=== PATIENT | male | born 1935 | race Caucasian/White ===

== ENCOUNTER 2021-07-17 02:13 | Emergency (ER) | payer OTHER, MEDICAID ==
[~2021-07-17] VITALS: Ht 165.1 cm; Wt 59.0 kg
[~2021-07-17 02:13] MED LIST: AMLO2.5T45 PO; CIPR500T5 PO; CRES10 PO; ESOM40CA PO; FURO40TA5 PO; GABA-529 PO; INSU3INS6 SQ; LEVO75TA7 PO; RANI150T7 PO; SITA100T11 PO; SITA50TA3 PO; TAMS0.4C31 PO; TEMA30CA PO; TRAM50TA3 PO; [UNRECOGNIZED DRUG - OTHER] SUBCUT
[2021-07-17 02:39] LABS: BASOPHILS % 0.6 % (0.0-2.0); EOSINOPHILS % 7.9 % (0.0-5.0); HEMOGLOBIN. 9.3 g/dL (14.0-18.0); LYMPHOCYTES % 41.4 % (20.0-50.0); MEAN CORPUSCULAR HEMOGLOBIN 31.6 pg (28.0-32.0); MEAN PLATELET VOLUME 7.7 fl (7.4-10.4); MONOCYTES % 10.9 % (2.0-8.0); NEUTROPHILS % 39.2 % (40.0-76.0); PLATELET 220 x1000/uL (130-400); RED BLOOD CELL COUNT 2.94 mill/uL (4.7-6.1)
[2021-07-17 02:51] LABS: CHLORIDE 114 mEq/L (98-107)
[2021-07-17] MEDS ORDERED: DEXTROSE 50% WATER 50ML SYRINGE IV ONE (03:15)
[2021-07-17] MEDS ORDERED: DEXT 10% WATER 1,000 ML IV ONE (03:30)
[2021-07-17] MEDS ORDERED: OLANZAPINE 10 MG/VIAL IM ONE (10:15)
[2021-07-17] MEDS ORDERED: LORAZEPAM 2MG/ML CPJ IM ONE (10:15)
[2021-07-17 10:42] VITALS: BP 138/47
== END 2021-07-17 10:36 | disposition short-term general hospital (02) ==
LOC: ER 02:13
DX: E11.649 Type 2 diabetes mellitus with hypoglycemia without coma (principal); I10 Essential (primary) hypertension; Z20.822 Contact with and (suspected) exposure to COVID-19; Z88.8 Allergy status to other drugs, medicaments and biological substances; Z79.899 Other long term (current) drug therapy
CPT/HCPCS: 36415; 80053; 82962; 83880; 84484; 85025; 87426; 93005; 96361; 96372; 96374; 99291; J2060; J3490

== ENCOUNTER 2023-03-31 14:09 | Emergency (ER) | payer OTHER ==
[~2023-03-31] VITALS: Ht 167.6 cm; Wt 68.0 kg
[2023-03-31 14:23] VITALS: O2SAT 98
[2023-03-31 15:31] LABS: BASOPHILS % 0.7 % (0.0-2.0); EOSINOPHILS % 2.7 % (0.0-5.0); HEMATOCRIT. 37.5 % (42.0-52.0); HEMOGLOBIN. 12.6 g/dL (14.0-18.0); LYMPHOCYTES % 10.8 % (20.0-50.0); MEAN CORPUSCULAR HEMOGLOBIN 31.7 pg (28.0-32.0); MEAN CORPUSCULAR HGB CONC 33.7 g/dL (31.0-37.0); MEAN CORPUSCULAR VOLUME 94.2 fL (80.0-94.0); MEAN PLATELET VOLUME 8.4 fl (7.4-10.4); MONOCYTES % 5.8 % (2.0-8.0); PLATELET 277 x1000/uL (130-400); RED BLOOD CELL COUNT 3.98 mill/uL (4.7-6.1); RED CELL DISTRIBUTION WIDTH 14.2 % (11.6-14.6); WHITE BLOOD COUNT 8.9 x1000/uL (4.5-11.0)
[2023-03-31 15:37] LABS: PROTHROMBIN TIME 11.3 sec (9.6-11.0)
[2023-03-31 15:42] LABS: ALANINE AMINOTRANSFERASE 8 IU/L (10-49); ALBUMIN 4.4 g/dL (3.2-4.8); ASPARTATE AMINOTRANSFERASE 20 IU/L (<34); BILIRUBIN TOTAL 0.6 mg/dL (0.1-1.0); CALCIUM 9.2 mg/dL (8.7-10.4); CARBON DIOXIDE 26 mEq/L (21-32); CHLORIDE 96 mEq/L (98-107); CREATININE 3.8 mg/dL (0.6-1.3); POTASSIUM 3.8 mEq/L (3.5-5.1); PROTEIN TOTAL 9.3 g/dL (6.0-8.3); SODIUM 134 mEq/L (136-145); TROPONIN I HIGH SENSITIVITY 35 ng/L (3.0-53)
[2023-03-31 15:44] LABS: GLUCOSE 269 mg/dL (70-105)
[2023-03-31 15:45] LABS: ETHANOL BLOOD < 10 mg/dL (<10)
[2023-03-31 15:48] LABS: UREA NITROGEN BLOOD 115 mg/dL (9-23)
[2023-03-31] MEDS ORDERED: CEFTRIAXONE 1GM PREMIX 50 ML IV ONE (16:00)
[2023-03-31 17:29] LABS: TROPONIN I HIGH SENSITIVITY 44 ng/L (3.0-53)
[2023-03-31] MEDS: AZITHROMYCIN 500MG/250ML 250 ML IV SCH (19:23)
[2023-03-31] MEDS: SODIUM CHLORIDE 0.9% 1,000 ML IV ONE (19:23)
[2023-03-31 20:12] LABS: CLARITY URINE CLEAR (CLEAR); COLOR URINE YELLOW (YELLOW); GLUCOSE URINE 1+ (NEGATIVE); KETONES URINE NEGATIVE (NEGATIVE); LEUKOCYTE ESTERASE URINE NEGATIVE (NEGATIVE); NITRITE URINE NEGATIVE (NEGATIVE); OCCULT BLOOD URINE TRACE (NEGATIVE); PH URINE 5.5 (4.5-8.0); PROTEIN URINE 2+ (NEGATIVE); SPECIFIC GRAVITY URINE 1.012 (1.005-1.030); UROBILINOGEN URINE 0.2 E.U./dL (0.2-1.0)
[2023-03-31 20:42] LABS: RBC URINE NONE SEEN /hpf (0-2); WBC URINE NONE SEEN /hpf (0-2)
[2023-03-31 20:43] LABS: BACTERIA URINE NONE SEEN; SQUAMOUS EPITHELIAL CELL URINE RARE /lpf (RARE/1+)
[2023-03-31] MEDS ORDERED: HYDRALAZINE 20MG/ML VIAL IV ONE (21:00)
[2023-03-31 21:02] VITALS: BP 136/52; PULSE 77; RESP 14; TEMP 97.2
== END 2023-03-31 21:27 | disposition short-term general hospital (02) ==
LOC: ER 14:09
DX: R55 Syncope and collapse (principal); N17.9 Acute kidney failure, unspecified; E86.0 Dehydration; J18.9 Pneumonia, unspecified organism; E11.9 Type 2 diabetes mellitus without complications; F19.90 Other psychoactive substance use, unspecified, uncomplicated
CPT/HCPCS: 80053; 81003; 80320; 83605; 85025; 85610; 87040; 84484; 36415; 71045; 93005; 96365; 99291; J0456; G0480

== ENCOUNTER 2023-04-28 11:05 | Emergency (ER) | payer OTHER, MEDICAID ==
[~2023-04-28] VITALS: Ht 172.7 cm; Wt 73.0 kg
[2023-04-28 11:08] VITALS: O2SAT 98
[2023-04-28] MEDS: SODIUM CHLORIDE 0.9% 1,000 ML IV ONE ×2 (11:39→13:53)
[2023-04-28 11:51] LABS: BASOPHILS % 0.6 % (0.0-2.0); EOSINOPHILS % 5.8 % (0.0-5.0); HEMATOCRIT. 38.3 % (42.0-52.0); HEMOGLOBIN. 12.7 g/dL (14.0-18.0); LYMPHOCYTES % 36.7 % (20.0-50.0); MEAN CORPUSCULAR HEMOGLOBIN 32.2 pg (28.0-32.0); MEAN CORPUSCULAR VOLUME 97.5 fL (80.0-94.0); MEAN PLATELET VOLUME 8.9 fl (7.4-10.4); MONOCYTES % 8.5 % (2.0-8.0); NEUTROPHILS % 48.4 % (40.0-76.0); PLATELET 262 x1000/uL (130-400); RED BLOOD CELL COUNT 3.93 mill/uL (4.7-6.1); WHITE BLOOD COUNT 7.4 x1000/uL (4.5-11.0)
[2023-04-28 12:06] LABS: BG BASE EXCESS -1.5 mmol/L (-2.0-2.0); BG CARBOXYHEMOGLOBIN 0.4 % (0.5-1.5); BG FRACTION INSPIRED OXYGEN 21; BG HCO3 ACT 24.1 mmol/L (22.0-26.0); BG METHEMOGLOBIN 0.2 % (0.0-1.5); BG OXYHEMOGLOBIN 94.4 % (94.0-97.0); BG PCO2 44.3 mmHg (35.0-45.0); BG PH 7.354 (7.350-7.450); BG SAMPLE SITE RIGHT RADIAL; BG TOTAL HEMOGLOBIN 12.7 g/dL (12.0-18.0); BG VENT MODE ROOM AIR
[2023-04-28 12:10] LABS: AMMONIA < 17 uMol/L (<32)
[2023-04-28 12:19] LABS: ACETAMINOPHEN < 2 ug/mL (10-30); ALANINE AMINOTRANSFERASE 15 IU/L (10-49); ALBUMIN 4.1 g/dL (3.2-4.8); ASPARTATE AMINOTRANSFERASE 35 IU/L (<34); BILIRUBIN TOTAL 0.5 mg/dL (0.1-1.0); CALCIUM 8.6 mg/dL (8.7-10.4); CARBON DIOXIDE 21 mEq/L (21-32); CHLORIDE 101 mEq/L (98-107); CREATININE 3.4 mg/dL (0.6-1.3); GLUCOSE 289 mg/dL (70-105); POTASSIUM 5.3 mEq/L (3.5-5.1); SODIUM 133 mEq/L (136-145); UREA NITROGEN BLOOD 84 mg/dL (9-23)
[2023-04-28 12:20] LABS: ETHANOL BLOOD < 10 mg/dL (<10)
[2023-04-28] MEDS ORDERED: INSULIN REGULAR (HUMULIN R) 300UNITS/3ML VIAL IV NR (13:00)
[2023-04-28 13:11] LABS: BETA HYDROXYBUTYRATE 0.6 mMol/L (0.0-0.3)
[2023-04-28] MEDS: INSULIN REGULAR (HUMULIN R) 300UNITS/3ML VIAL SUBCUT ONE (14:23)
[2023-04-28 15:35] LABS: TROPONIN I HIGH SENSITIVITY 47 ng/L (3.0-53)
[2023-04-28 16:32] LABS: CLARITY URINE CLEAR (CLEAR); COLOR URINE YELLOW (YELLOW); GLUCOSE URINE 2+ (NEGATIVE); KETONES URINE NEGATIVE (NEGATIVE); LEUKOCYTE ESTERASE URINE NEGATIVE (NEGATIVE); NITRITE URINE NEGATIVE (NEGATIVE); OCCULT BLOOD URINE TRACE (NEGATIVE); PH URINE 6.5 (4.5-8.0); PROTEIN URINE 2+ (NEGATIVE); SPECIFIC GRAVITY URINE 1.012 (1.005-1.030); UROBILINOGEN URINE 0.2 E.U./dL (0.2-1.0)
[2023-04-28 16:45] LABS: BACTERIA URINE NONE SEEN; RBC URINE 0-2 /hpf (0-2); SQUAMOUS EPITHELIAL CELL URINE FEW /lpf (RARE/1+); WBC URINE NONE SEEN /hpf (0-2)
[2023-04-28 16:55] LABS: TROPONIN I HIGH SENSITIVITY 47 ng/L (3.0-53)
[2023-04-28 17:45] LABS: *AMPHETAMINES SCREEN URINE NEGATIVE (NEGATIVE); *BARBITURATES SCREEN URINE NEGATIVE (NEGATIVE); *BENZODIAZEPINES SCREEN URINE NEGATIVE (NEGATIVE); *COCAINE SCREEN URINE NEGATIVE (NEGATIVE); CANNABINOID URINE SCREEN NEGATIVE (NEGATIVE); ECSTASY MDMA SCREEN URINE NEGATIVE (NEGATIVE); METHADONE URINE SCREEN Neg (NEGATIVE); OPIATES URINE SCREEN NEGATIVE (NEGATIVE); PHENCYCLIDINE URINE SCREEN NEGATIVE (NEGATIVE)
[2023-04-28 19:30] VITALS: BP 151/77; PULSE 101; RESP 14; TEMP 98.1
== END 2023-04-28 18:35 | disposition short-term general hospital (02) ==
LOC: ER 11:05
DX: R41.82 Altered mental status, unspecified (principal); E11.65 Type 2 diabetes mellitus with hyperglycemia; F03.90 Unspecified dementia, unspecified severity, without behavioral disturbance, psychotic disturbance, mood disturbance, and anxiety; Z79.899 Other long term (current) drug therapy; Z20.822 Contact with and (suspected) exposure to COVID-19
CPT/HCPCS: 80053; 80305; 81003; 80307; 82010; 80329; 80320; 82140; 82962; 83605; 83690; 83930; 85025; 84484; 36415; 71045; 70450; 82805; 82375; 93005; 96360; 96361; 96372; 99285; 87426; 36600; J1815; J7030; G0480